=== PATIENT | female | born 1965 | race Caucasian/White ===

== ENCOUNTER 2019-01-27 08:15 | Emergency (ER) | payer MEDICAID ==
[~2019-01-27] VITALS: Ht 165.1 cm; Wt 86.1 kg
[2019-01-27 08:42] VITALS: BP 121/55
--- NOTE | 2019-01-27 08:44 | NUR ---
FIRST CONTACT WITH PT. PT REPORTS A "BUG BITE" ON RIGHT BUTTOCK AND AN ABRASION ON R GT. THE BUTTOCK WOUND HAS BEEN FOR 3 DAYS AND THE TOE FOR ABOUT A MONTH. VSS. WILKS. CHARLENE MATTHEWS, AT BEDSIDE TO EVALUATE. O2 AND BP CUFF IN PLACE. ALL SAFETY MEASURES OBSERVED.
[2019-01-27] MEDS ORDERED: GABA300C10 PO (08:48)
[2019-01-27] MEDS ORDERED: PIOG15TA22 PO (08:48)
[2019-01-27] MEDS ORDERED: IBUP-1222 PO (08:48)
--- NOTE | 2019-01-27 09:35 | NUR ---
Fingerstick completed. Pt ambulatory around room with steady gait, denies needs.
== END 2019-01-27 10:22 | disposition home or self-care (01) ==
LOC: ED 10:06
DX: L02.31 Cutaneous abscess of buttock (principal); Z76.0 Encounter for issue of repeat prescription; E11.9 Type 2 diabetes mellitus without complications; G62.9 Polyneuropathy, unspecified; M79.7 Fibromyalgia; I25.2 Old myocardial infarction; Z86.73 Personal history of transient ischemic attack (TIA), and cerebral infarction without residual deficits
CPT/HCPCS: 82962; 99283